=== PATIENT | male | born 1995 | race Caucasian/White ===

== ENCOUNTER 2021-02-11 18:55 | Emergency (ER) | payer BC ==
[~2021-02-11] VITALS: Ht 180.3 cm; Wt 84.1 kg
[2021-02-11] MEDS ORDERED: AMOXICILLIN 8751 TAB PO (19:24)
[2021-02-11 19:40] VITALS: BP 132/70; PULSE 78
== END 2021-02-11 19:40 | disposition home or self-care (01) ==
LOC: COL.ER 18:55
DX: S61.451A Open bite of right hand, initial encounter (principal); Z23 Encounter for immunization; W54.0XXA Bitten by dog, initial encounter